=== PATIENT | male | born 1995 | race Caucasian/White ===

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

== ENCOUNTER 2018-04-04 20:07 | Emergency (ER) | payer OTHER ==
[~2018-04-04] VITALS: Ht 180.3 cm; Wt 118.2 kg
[2018-04-04 20:07] VITALS: BP 151/75
[2018-04-04 20:51] LABS: INFLUENZA A AMPLIFICATION NEGATIVE (NEGATIVE); INFLUENZA B AMPLIFICATION NEGATIVE (NEGATIVE)
[2018-04-04] MEDS ORDERED: CLAR5TAB7 PO (20:55)
[2018-04-04] MEDS ORDERED: TESS100C PO (20:55)
[2018-04-04] MEDS ORDERED: BENZONATATE 100 MG CAP PO ONE (21:00)
== END 2018-04-04 21:06 | disposition home or self-care (01) ==
LOC: M ED 20:07
DX: B34.9 Viral infection, unspecified (principal); R05 Cough; F17.200 Nicotine dependence, unspecified, uncomplicated

== ENCOUNTER 2023-04-20 01:28 | Emergency (ER) | payer BC, OTHER ==
[~2023-04-20] VITALS: Ht 180.3 cm; Wt 129.8 kg
[~2023-04-20 01:28] MED LIST: CLAR5TAB7 PO; TESS100C PO
[2023-04-20 01:32] VITALS: BP 137/87; TEMP 98.6; O2SAT 98
[2023-04-20] MEDS ORDERED: FLUORESCEIN OPHTH 1MG STRIP OD ONE (05:45)
[2023-04-20] MEDS ORDERED: ERYT5OIN25 OS (06:31)
[2023-04-20] MEDS: TETRACAINE 0.5% OPHTH SOLN 4ML OD ONE (06:32)
[2023-04-20] MEDS: ERYTHROMYCIN OPHTH OINT OS ONE (06:33)
== END 2023-04-20 06:54 | disposition home or self-care (01) ==
LOC: M ED 01:28
DX: S05.02XA Injury of conjunctiva and corneal abrasion without foreign body, left eye, initial encounter (principal); Y92.9 Unspecified place or not applicable; Y93.89 Activity, other specified; Y99.9 Unspecified external cause status; Z79.2 Long term (current) use of antibiotics